=== PATIENT | male | born 1975 | race Two or more races ===

== ENCOUNTER 2016-09-01 00:31 | Emergency (ER) | payer OTHER ==
[~2016-09-01] VITALS: Ht 190.5 cm; Wt 136.0 kg
[2016-09-01] MEDS ORDERED: KETOROLAC 30 MG/ML VIAL (J1885) IV ONE (02:00)
[2016-09-01 02:14] LABS: MICROSCOPIC INDICATED? MAN YES (NO)
[2016-09-01 02:22] LABS: BASO # 0.1 K/mm3 (0.0-0.2); BASO % 0.6 % (0.0-1.0); EOS # 0.4 K/mm3 (0.0-0.50); EOS % 2.4 % (0.0-3.0); LARGE UNSTAINED CELL # 0.2 K/mm3 (0.0-0.4); LARGE UNSTAINED CELL % 1.4 % (0.0-4.0); LYMPH # 2.6 K/mm3 (1.5-4.5); LYMPH % 15.4 % (24.0-44.0); MEAN CORPUSCULAR HEMOGLOBIN 29.2 pg (27.0-33.0); MEAN CORPUSCULAR HGB CONC 33.8 g/dl (32.0-36.5); MEAN CORPUSCULAR VOLUME 86.4 fl (80.0-96.0); MONO % 6.7 % (0.0-5.0); NEUTROPHILS # 11.3 K/mm3 (1.8-7.7); NEUTROPHILS % 73.5 % (36.0-66.0); PLATELET COUNT, AUTOMATED 255 k/mm3 (150-450); RED CELL DISTRIBUTION WIDTH 12.9 % (11.5-14.5); WHITE BLOOD COUNT 15.4 K/mm3 (4.0-10.0)
[2016-09-01 02:39] LABS: RBC, URINE 0-1 /hpf (0-3); SQUAMOUS EPITHELIAL CELL URINE NONE SEEN /hpf (SMALL AMT)
[2016-09-01 02:40] LABS: BACTERIA, URINE NONE SEEN; HYALINE CAST, URINE NONE SEEN /lpf (0-1)
[2016-09-01 02:41] LABS: MICROSCOPIC EXAM PERFORMED
[2016-09-01 02:48] LABS: ANION GAP 8 MEQ/L (8-16); BLOOD UREA NITROGEN 8 MG/DL (7-18); CALCIUM LEVEL 8.9 MG/DL (8.5-10.1); CARBON DIOXIDE LEVEL 26 MEQ/L (21-32); CHLORIDE LEVEL 103 MEQ/L (98-107); CREATININE FOR GFR 1.22 MG/DL (0.70-1.30); GLOMERULAR FILTRATION RATE > 60.0 (>60); GLUCOSE, FASTING 119 MG/DL (70-105); POTASSIUM SERUM 3.6 MEQ/L (3.5-5.1); SODIUM LEVEL 137 MEQ/L (136-145)
--- NOTE | 2016-09-01 03:30 | REPUSA ---
TESTICULAR SONOGRAM History: Testicular swelling. Comparison studies: None available Technique: Multiple real-time images of the scrotal contents were obtained. Findings: The right testicle measures 4.5x2.1 x 3 cm. The right epididymis measures 8 mm. The left testicle measures 4.5x2.1x2.9 cm. The left epididymis measures 7.4 mm. The testes are normal in size. Doppler flow is demonstrated on both testes. There are no findings kelli picious for testicular torsion. There are also no findings suspicious for testicular malignancy. No significant abnormality of either epididymis is found sonographically. No findings suspicious for epididymitis are identified. A physiologic amount of fluid is identified in each hemiscrotom. Diffuse thickening of the scrotal wall. Impression: No evidence of testicular torsion is identified. No significant abnormality detected. Thickening of the scrotal wall suggestive of an infectious/inflammatory pathology. No drainable abscess formation.
[2016-09-01] MEDS ORDERED: BACTRIM 160MG/800MG DS TAB PO ONE (06:00)
[2016-09-01] MEDS ORDERED: BACT800T5 PO (06:04)
[2016-09-01 06:12] VITALS: BP 136/83
== END 2016-09-01 06:23 | disposition home or self-care (01) ==
LOC: MERGE 00:31 → M ED 00:31
DX: N49.2 Inflammatory disorders of scrotum (principal)
CPT/HCPCS: 76870; 80048; 81000; 85025; 86140; 87040; 87086; 87491; 87591; 93976; 96374; 99283; J1885

== ENCOUNTER → 2016-09-09 | Outpatient (REF) | payer OTHER ==
[~2016-09-09] MED LIST: BACT800T5 PO
== END ==
LOC: M SMT 17:32
PROVIDERS: ATTEND Nurse Practitioner Women's Health
DX: I89.0 Lymphedema, not elsewhere classified (principal)

== ENCOUNTER → 2016-09-16 | Outpatient (CLI) | payer OTHER ==
[~2016-09-16] MED LIST changes: +ISOVUE-370 76% 100ML VIAL (Q9967) As Ordered ONE
--- NOTE | 2016-09-16 08:56 | REP ---
Chest two views HISTORY: Lymph edema Comparison: None The lungs are hyperinflated. The lungs are clear. The heart is normal in size. The pulmonary vasculature is normal in appearance. The bony structure is intact. IMPRESSION: No acute disease. Signed by Kelton Harper MD 09/16/2016 08:48 A
--- NOTE | 2016-09-16 09:54 | REP ---
CT abdomen pelvis without and with IV contrast, multiphase scanning. After IV contrast scanning is performed initially during the arterial phase of enhancement and later during the equilibrium phase of enhancement. There are no comparison studies. The visualized lung macias are unremarkable. The hepatic parenchyma, pancreas and spleen are normal size, homogeneous and unremarkable on all phases of the study. There is a 1.7-cm gallbladder calculus. The gallbladder is otherwise unremarkable. The adrenals and kidneys are unremarkable. There is no hydronephrosis. The abdominal aorta is unremarkable. There is no bowel distension. The bowel and mesentery are unremarkable. Pelvis: The appendix has a normal appearance. There is no ascites, adenopathy or mass. The bladder is unremarkable. The skeletal structures are unremarkable. I suspect there are large bilateral scrotal hydroceles. This could be confirmed by ultrasound. Impression: Large bilateral scrotal hydroceles. This could be confirmed by ultrasound. There is no abdominal or pelvic mass, adenopathy or ascites. Otherwise, negative CT study of the abdomen and pelvis except for a single gallbladder calculus. Signed by Joshua Lam MD 09/16/2016 09:46 A
== END ==
LOC: M RAD 08:26
PROVIDERS: ATTEND Nurse Practitioner Women's Health
DX: I89.0 Lymphedema, not elsewhere classified (principal)